=== PATIENT | male | born 1990 | race Two or more races ===

== ENCOUNTER 2017-12-09 00:01 | Emergency (ER) | payer OTHER ==
[2017-12-09 00:43] LABS: ABS Basophils 0.1 10^3/ul (0-0.2); ABS Eosinophils 0.1 10^3/ul (0-0.6); ABS Lymphocytes 1.8 10^3/ul (1.0-4.8); ABS Monocytes 0.7 10^3/ul (0-0.8); ABS Neutrophils 6.2 10^3/ul (1.5-7.7); ABS Nucleated RBC 0 10^3/ul; Eosinophil % 1.1 % (0-6); Hematocrit 43 % (42-52); Hemoglobin 14.4 g/dl (14.0-18.0); Lymphocyte % 20.1 % (25-47); Mean Corpuscular HGB Conc 34 g/dl (31-36); Mean Corpuscular Hemoglobin 29 pg (27-31); Mean Corpuscular Volume 87 fL (80-94); Mean Platelet Volume 7.3 um3 (7.4-10.4); Nucleated Red Blood Cells % 0.1; Platelet Count 292 10^3/ul (150-450); Red Blood Count 4.96 10^6/ul (4.0-5.4); Red Cell Distribution Width 14 % (10.5-15); White Blood Count 8.9 10^3/ul (3.5-10.8)
[2017-12-09 00:54] LABS: EGFR Non-African American 96.7 (>60)
[2017-12-09 03:12] VITALS: BP 122/72
--- NOTE | 2017-12-09 06:46 | ED ---
Ronald Faulkner Jennifer, scribed for Lachelle Harvey MD on 12/09/17 at 0033 . Psychiatric Complaint - HPI Summary HPI Summary: The patient is a 27 year old male who was brought in 941 after self-reporting suicidal ideation since 2300 last night. The patient reports today was the lowest point Yohana ever been at and complains of depression and social anxiety. 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 The patient denies suicidal plans, HI, auditory and visual hallucinations, and any pain. He denies alcohol or drug use today. - History Of Current Complaint Chief Complaint: [facility]ental[facility] Time Seen by Provider: 12/09/17 00:19 Hx Obtained From: Patient Onset/Duration: Gradual Onset, Still Present, Worse Since - today Timing: Constant Severity Initially: Moderate Severity Currently: Moderate Character: Depressed Aggravating Factor(s): Recent Stress Alleviating Factor(s): Nothing Associated Signs And Symptoms: Negative: Hallucinating Has Suicidal: Reports: Thoughts. Denies: With A Plan, Demonstrates Gesture, Has Prior Attempt(s) Has Homicidal: Denies: Thoughts, With A Plan, Demonstrates Gesture, Has Prior Attempt(s) - Allergies/Home Medications Allergies/Adverse Reactions: Allergies Allergy/AdvReac Type Severity Reaction Status Date / Time No Known Allergies Allergy Verified 12/09/17 00:12 Home Medications: Home Medications Fluoxetine HCl [Prozac] 20 mg PO DAILY 12/09/17 [History Confirmed 12/09/17] Guanfacine HCl [Intuniv] 3 mg PO DAILY 12/09/17 [History Confirmed 12/09/17] PMH/Surg Hx/FS Hx/Imm Hx Endocrine/Hematology History: Denies: Hx Diabetes Cardiovascular History: Denies: Hx Hypertension Psychiatric History: Reports: Hx Depression - Immunization History Date of Tetanus Vaccine: utd Date of Influenza Vaccine: utd Infectious Disease History: No Infectious Disease History: Denies: Traveled Outside the [place] in Last 30 Days - Family History Known Family History: Negative: Diabetes - Social History Alcohol Use: Weekly Hx Substance Use: No Substance Use Type: Reports: None Smoking Status (MU): Current Some Day Smoker Review of Systems Negative: Fever Positive: Anxious, Depressed, Other - SI All Other Systems Reviewed And Are Negative: Yes Physical Exam - Summary Physical Exam Summary: GENERAL: ~Patient is a well developed and nourished M who is lying comfortable in the stretcher. ~Patient is not in any acute respiratory distress. HEAD AND FACE: Normocephalic EYES: PERRLA, EOMI x 2. EARS: Hearing grossly intact. MOUTH: Oropharynx within normal limits. NECK: Supple, trachea is midline, no adenopathy, no JVD, no carotid bruit. CHEST: Symmetric, no tenderness at palpation LUNGS: Clear to auscultation bilaterally. No wheezing or crackles. CVS: Regular rate and rhythm, S1 and S2 present, no murmurs or gallops appreciated. ABDOMEN: Soft, non-tender. Bowel sounds are normal. No abdominal abnormal pulsations. EXTREMITIES: Full ROM in all major joints, no edema, no cyanosis or clubbing. NEURO: Alert and oriented x 3. No acute neurological deficits. Speech is normal and follows commands. SKIN: Dry and warm Psych: No SI, HI, visual or auditory hallucinations, linear thought process and content Triage Information Reviewed: Yes Vital Signs On Initial Exam: Initial Vitals Temp Pulse Resp BP Pulse Ox 98.8 F 94 16 115/74 97 12/09/17 00:07 12/09/17 00:07 12/09/17 00:07 12/09/17 00:07 12/09/17 00:07 Vital Signs Reviewed: Yes Diagnostics - Vital Signs Vital Signs Temp Pulse Resp BP Pulse Ox 12/09/17 00:07 98.8 F 94 16 115/74 97 - Laboratory Lab Results: Lab Results 12/09/17 12/09/17 Range/Units 00:22 00:22 WBC 8.9 (3.5-10.8) 10^3/ul RBC 4.96 (4.0-5.4) 10^6/ul Hgb 14.4 (14.0-18.0) g/dl Hct 43 (42-52) % MCV 87 (80-94) fL MCH 29 (27-31) pg MCHC 34 (31-36) g/dl RDW 14 (10.5-15) % Plt Count 292 (150-450) 10^3/ul MPV 7.3 L (7.4-10.4) um3 Neut % (Auto) 70.4 (38-83) % Lymph % (Auto) 20.1 L (25-47) % [place] % (Auto) 7.8 H (0-7) % Eos % (Auto) 1.1 (0-6) % Baso % (Auto) 0.6 (0-2) % Absolute Neuts (auto) 6.2 (1.5-7.7) 10^3/ul Absolute Lymphs (auto) 1.8 (1.0-4.8) 10^3/ul Absolute Monos (auto) 0.7 (0-0.8) 10^3/ul Absolute Eos (auto) 0.1 (0-0.6) 10^3/ul Absolute Basos (auto) 0.1 (0-0.2) 10^3/ul Absolute Nucleated RBC 0 10^3/ul Nucleated RBC % 0.1 Sodium 136 L (139-145) mmol/L Potassium 3.9 (3.5-5.0) mmol/L Chloride 106 (101-111) mmol/L Carbon Dioxide 25 (22-32) mmol/L Anion Gap 5 (2-11) mmol/L BUN 13 (6-24) mg/dL Creatinine 0.93 (0.67-1.17) mg/dL Est GFR ( Amer) 124.4 (>60) Est GFR (Non-Af Amer) 96.7 (>60) BUN/Creatinine Ratio 14.0 (8-20) Glucose 147 H (70-100) mg/dL Calcium 9.6 (8.6-10.3) mg/dL Total Bilirubin 0.40 (0.2-1.0) mg/dL AST 18 (13-39) U/L ALT 16 (7-52) U/L Alkaline Phosphatase 79 (34-104) U/L Total Protein 7.7 (6.4-8.9) g/dL Albumin 4.3 (3.2-5.2) g/dL Globulin 3.4 (2-4) g/dL Albumin/Globulin Ratio 1.3 (1-3) TSH 1.42 (0.34-5.60) mcIU/mL Salicylates < 2.50 (<30) mg/dL Acetaminophen < 15 mcg/mL Serum Alcohol < 10 (<10) mg/dL Result Diagrams: 12/09/17 00:22 12/09/17 00:22 Lab Statement: Any lab studies that have been ordered have been reviewed, and results considered in the medical decision making process. Course/Dx - Course Course Of Treatment: The patient is a 27 year old male who was brought in 941 after self-reporting suicidal ideation since 2300 last night. Bloodwork and urinalysis were obtained. The patient is diagnosed with depressive disorder. Patient seen and evaluated by and is cleared for discharge home by Dr. Engle with plan to follow up out-patient. Return precautions given. - Differential Dx/Clinical Impression Provider Diagnosis: Depressive disorder Discharge - Sign-Out/Discharge Documenting (check all that apply): Discharge/Admit/Transfer - Discharge Plan Condition: Stable Disposition: HOME Patient Education Materials: Depression (ED) Referrals: Didi Maciel MD [Primary Care Provider] - Additional Instructions: Follow up with your primary care physician in three days. Return to the emergency department for any new or worsening symptoms. - Billing Disposition and Condition Condition: STABLE Disposition: HOME The documentation as recorded by the Ronald juarez Jennifer accurately reflects the service I personally performed and the decisions made by , Lachelle Harvey MD.
== END 2017-12-09 03:11 | disposition home or self-care (01) ==
LOC: ED 00:01
DX: F32.9 Major depressive disorder, single episode, unspecified (principal); F17.200 Nicotine dependence, unspecified, uncomplicated
CPT/HCPCS: 36415; 80053; 80320; 80329; 84443; 85025; 99285; G0480